=== PATIENT | female | born 1935 | race Caucasian/White ===

== ENCOUNTER 2023-10-03 22:23 | Inpatient (IN) | payer OTHER, SELFPAY ==
[2023-10-03 15:57] VITALS: BP 203/91
[2023-10-03 16:27] LABS: % Basophils 0.5 % (0-2); % Eosinophils 1.4 % (0-6); % Immature Granulocytes 0.3 % (0-0.5); % Lymphocytes 16.3 % (20.5-51.1); % Monocytes 11.8 % (1.7-9.3); % Neutrophils 69.7 % (42.2-75.2); Absolute Eosinophils 0.1 10^3/uL (0-0.7); Absolute Lymphocytes 1.3 10^3/uL (1.2-3.4); Absolute Monocytes 0.9 10^3/uL (0.1-0.6); Absolute Neutrophils 5.5 10^3/uL (1.4-6.5); Hematocrit 36.1 % (37.0-47.0); Mean Corpuscular Hgb 30.2 pg (27.0-31.0); Mean Platelet Volume 10.2 fL (7.4-10.4); Nucleated Red Blood Cells % 0 %; Platelet Count 227 10^3/uL (130-400); Red Cell Dist. Width 12.5 % (11.5-14.5); White Blood Cell Count 7.8 10^3/uL (4.8-10.8)
[2023-10-03 16:41] LABS: INR 1.86; PT 21.3 Sec (11.4-14.6)
[2023-10-03 16:42] LABS: ALT (SGPT) 17 U/L (0-35); APTT 32.8 Sec (23.4-35.0); AST (SGOT) 30 U/L (14-36); Albumin 4.1 g/dl (3.5-5.0); Alkaline Phosphatase 68 U/L (38-126); Blood Urea Nitrogen 9 mg/dl (7-17); Calcium 9.1 mg/dl (8.4-10.2); Carbon Dioxide 23 mmol/L (22-30); Chloride 91 mmol/L (98-107); Glucose 99 mg/dl (70-99); Potassium 3.7 mmol/L (3.5-5.1); Sodium 123 mmol/L (135-145); Total Bilirubin 0.5 mg/dl (0.2-1.3); Total Protein 6.6 g/dl (6.3-8.2); eGFR > 60.00
[2023-10-03 16:51] LABS: Troponin I < 0.012 ng/ml
[2023-10-03 18:27] LABS: Osmolality Serum 255 mOsm/kg (275-300)
[2023-10-03 18:48] LABS: TSH 3.18 uIU/ml (0.47-4.68)
--- NOTE | 2023-10-03 19:50 | ED.GENMED ---
History of Present Illness
General
Chief Complaint: Blood Pressure Problem
Source: patient
Exam Limitations: none
Time Seen by Provider: 10/03/23 17:50
Nursing documentation reviewed up to this point in time: agreed with
History of Present Illness
History of Present Illness:
87-year-old female history of hypertension A-fib on warfarin followed at [facility] [address], stay with her family locally for the past 2 weeks that she has been feeling well blood pressure has been elevated looks like her hydralazine has been
increased beta-jodie was stopped, also started on an SSRI few weeks ago she has had progressive weakness dizziness aches fatigue and blood pressure is still elevated no chest pain no slurred speech no arm or leg weakness nondrinker non-smoker
typically lives alone she is retired although she has been staying with family
Past History
Past History
ED Past Medical History: Arrthythmia, HTN and Psychiatric
Social History
Tobacco: Non-smoker
Alcohol: None
Drug: None
Personal:
Living: alone
Employment: Retired
Review of Systems
Review of Systems
All Other Systems: Not applicable
Constitutional: Reports fatigue; Denies fever
Respiratory: Reports no symptoms
Cardiac: Reports no symptoms
ABD/GI: Reports no symptoms
: Reports frequency; Denies dysuria, incontinence or difficulty voiding
Musculoskeletal: Reports no symptoms
Skin: Reports no symptoms
Neurological: Reports dizzy
Endocrine: Reports no symptoms
Hematologic/Lymphatic: Reports no symptoms
Psychiatric: Reports no symptoms
Phy Exam
Physical Exam
Physical Exam:
Physical Exam
General: no apparent distress, not acutely ill
Neck: No jaundice no tongue bite
Heart: s1/s2 regular rate and rhythm, no murmur. equal radial pulses.
Lungs: no acute respiratory distress. clear bilaterally
Abdomen: Nontender
Neuro: alert and oriented. no focal neurological deficits
Skin: no rash
Psychiatric: well kept. interactive and cooperative
Extremities: no edema. No calf pain
Course
Orders/Labs/Results
Orders:
Orders
10/03/23 Breakfast
Regular
At Your Request: Limited Participation
Does patient need a safe tray?: No
Fluid Restriction: 1200 mL/day (40 oz)
10/03/23 16:02
Electrocardiogram (*1) Urgent
Reason for Study: Chest Pain
EKG- Treatment ONCE
10/03/23 16:16
Complete Blood Count/With Diff Urgent
Comprehensive Metabolic Panel Urgent
Cortisol, Random Urgent
Comment: ADD ON
PTT Urgent
Prothrombin Time Urgent
Serum Osmolality Urgent
Comment: ADD ON
TSH Urgent
Comment: ADD ON
Troponin I Urgent
10/03/23 17:51
Add On- LAB Urgent
Tests Added?: TSH, random cortisol, serum osmolality,
CR Chest - 2 Views Urgent
Comment:
Reason For Exam: Low-sodium
10/03/23 19:41
0.9% Sodium Chloride 250 ml [Nss] 250 ml IV BOLUS
HydrALAZINE [Apresoline] 10 mg IV NOW STA
10/03/23 22:02
Osmolality, Random Urine Urgent
Date Specimen was Collected: 10/03/23
Time Specimen was Collected: 21:24
Urinalysis Reflex To Culture Urgent
Date Specimen was Collected: 10/03/23
Time Specimen was Collected: 21:24
Urine Microscopic Reflex Cult Urgent
Urine Sodium Urgent
Date Specimen was Collected: 10/03/23
Time Specimen was Collected: 21:24
10/03/23 22:07
Admit/Transfer Patient As Directed
Co-Sign Provider:
Level of Care: Inpatient admission
Assign to:: Telemetry
Physician / Group: Kee
Diagnosis: Hyponatremia, Hypertension
Reason for Telemetry: Arrhythmia
Date to Stop Telemetry: 10/06/23
Time to Stop Telemetry: 11:00
Reason for Hospitalization: Hyponatremia, Hypertension
Expected length of stay greater than two midnights?: Yes
ELOS- Estimated Length of Stay in days: 3
I certify the patient meets the requirements for IP care: Yes
Code Status As Directed
Resuscitation Status: Full Code
10/03/23 22:59
Acetaminophen [Tylenol] 650 mg PO Q4HPRN PRN
HydrALAZINE [Apresoline] 10 mg IV Q6HPRN PRN
10/03/23 22:59
Activity As Directed
Activity Level: Ambulate
With Assistance
EKG with chest pain [ECG as needed] As Directed
ECG as needed for:: Chest Pain
I/O [Intake/ Output] As Directed
Frequency: Per unit guidelines
Neurological Checks As Directed
Frequency: q4h
Orthostatic Vital Signs As Directed
Orthostatic VS Frequency: BID
Pneumatic Compression Sleeves As Directed
Type: Knee high
Vital Signs As Directed
Frequency: Per unit guidelines
Weight As Directed
Frequency: Daily
Oxygen Therapy [O2 Therapy] [RESP] Routine
Titrate/Wean O2 to maintain O2 sat greater than (%): 94
Ot Eval And Treat Routine
PT Consult [Pt Eval And Treat] Routine
Activity Level: Ambulate
With Assistance
DX Deep Vein Thrombosis Video Routine
10/03/23 23:29
TSH Reflex To Free T4 Routine
Troponin I Q6H
10/04/23 06:00
EKG [Electrocardiogram (*1)] IN AM
Reason for Study: Chest Pain
10/04/23 06:44
Basic Metabolic Panel IN AM
Complete Blood Count/No Diff IN AM
INR [Prothrombin Time] IN AM
Troponin I Q6H
10/04/23 08:00
Aspirin Chewable [Low Strength Aspirin] 81 mg PO DAILY
Atorvastatin [Lipitor] 10 mg PO DAILY
Furosemide [Lasix] 40 mg IV DAILY
Loratadine [Claritin] 10 mg PO DAILY
Sotalol [Betapace] 80 mg PO BID
10/04/23 18:00
Latanoprost [Xalatan Ophthalmic Solution] 1 drop BOTH EYES QPM
Warfarin [Coumadin] 2.5 mg PO QPM
10/05/23 05:45
INR [Prothrombin Time] IN AM
10/06/23 04:53
INR [Prothrombin Time] IN AM
10/06/23 11:00
DC Protocol for Telemetry ONCE
10/07/23 04:42
INR [Prothrombin Time] IN AM
Abnormal Lab Results
10/03/23 10/03/23
16:16 22:02
Hct 36.1 L %
(37.0-47.0)
Absolute Monos (auto) 0.9 H 10^3/uL
(0.1-0.6)
Lymphocytes % 16.3 L %
(20.5-51.1)
Monocytes % 11.8 H %
(1.7-9.3)
PT 21.3 H Sec
(11.4-14.6)
Sodium 123 L mmol/L
(135-145)
Chloride 91 L mmol/L
(98-107)
Serum Osmolality 255 L mOsm/kg
(275-300)
Urine Ketones 1+ A
(Negative)
Ur Occult Blood Reflex Trace A
(Negative)
Leukocyte Esterase Rfl Trace A
(Negative)
Urine Osmolality 110 L mOsm/kg
(300-900)
Urine Sodium 29 L mmol/L
(30-90)
10/03/23 16:16
10/03/23 16:16
Vital Signs
Initial and Last Documented VS:
Initial Vital Signs
Temp Pulse Resp BP Pulse Ox
98.6 F 61 18 203/91 95
10/03/23 15:57 10/03/23 15:57 10/03/23 15:57 10/03/23 15:57 10/03/23 15:57
Last Documented Vital Signs
Temp Pulse Resp BP Pulse Ox
97.6 F 74 18 153/74 97
10/07/23 07:20 10/07/23 07:20 10/07/23 07:20 10/07/23 07:20 10/07/23 07:20
MDM/Problems Addressed
Differential Diagnosis Includes:
Hyponatremia hypertensive urgency electrolyte abnormality doubt CVA
MDM/Problems Addressed:
Weakness high blood
Chronic conditions affecting care: HTN, Cardiomyopathy, Arrhythmia and Psychiatric illness
Acute Exacerbation and/or Progression of Chronic Illness: HTN, Cardiomyopathy, Arrhythmia and Psychiatric illness
*Radiology
Radiology exam reviewed: preliminary read by ED provider
*Pulse Oximetry
Patient hypoxic: no
*Critical Care Note
Total Time (30-74mins, 75-104mins- exclusive of procedures): Not Applicable
ED Attending Note
-
Portions of this chart may have been created with voice recognition software.� Occasional wrong word or��sound alike� substitutions may have occurred due to the inherent limitations of voice recognition software.
Discharge Plan
Departure
Patient Disposition: Admit
Date of Disposition: 10/03/23
Time of Disposition: 20:17
Admit to: Telemetry
Presentation/result/management discussed w/ accepting MD/DO: Hospitalist
Patient with high blood pressure during this ER visit?: Yes
Condition: Good
Discharge Problem:
Acute hyponatremia
Interventions
Interventions:
*Risk Screen - Suicide Last Done: 10/03/23 20:25
*General Assessment Last Done: 10/03/23 16:01
*Neglect/Abuse Screening Last Done: 10/03/23 20:25
ED- Fall Risk Assessment Last Done: 10/03/23 20:25
*ED COVID-19 Vaccine History Last Done: 10/03/23 22:59
*Nursing Disposition Last Done: 10/03/23 22:59
ED- Cardiac Assessment Last Done: 10/03/23 20:25
ED- Neurological Assessment Last Done: 10/03/23 20:25
ED- Pulmonary Assessment Last Done: 10/03/23 20:25
Discharge Date and Time
Discharge Date/Time: 10/03/23 22:59
[2023-10-03 20:17] VITALS: BMI 23.9
[2023-10-03] MEDS: APRESOLINE 10 MG IV (20:21)
[2023-10-03] MEDS: NSS 250 IV (20:22)
--- NOTE | 2023-10-03 20:26 | EDRN ---
Assumed care of patient at this time, went in and introduced myself to patient, hooked up to monitor and medicated patient, informed them it appears she will be admitted to the hospital.
--- NOTE | 2023-10-03 20:45 | EDRN ---
Purwick placed, patient resting comfortably
[2023-10-03 21:22] VITALS: BP 169/83
--- NOTE | 2023-10-03 21:23 | EDRN ---
Dr. Sweet in at room working on admission.
[2023-10-03 22:12] LABS: Osmolality Urine 110 mOsm/kg (300-900)
[2023-10-03 22:14] LABS: Urine Albumin Negative (Neg - Trace); Urine Bilirubin Negative (Negative); Urine Character Clear (Clear); Urine Color Straw; Urine Glucose Negative (Negative); Urine Ketone 1+ (Negative); Urine Leukocyte Trace (Negative); Urine Nitrite Negative (Negative); Urine Occult Blood Trace (Negative); Urine Specific Gravity 1.005 (<1.030); Urine Urobilinogen Negative (Neg - 1+)
--- NOTE | 2023-10-03 22:17 | HPS.HSE ---
Family Physician
-
Family Physician: INTERVIEWE UNKNOWN - PT NOT
Chief Complaint
-
High blood pressure, chest discomfort
History of Present Illness
Patient is an 87y F with PMH significant for hypertension and PA-Fib who presents to ED complaining of burning chest discomfort and elevated blood pressure. Patient states that she has been having burning discomfort in a band-like fashion around
the lower chest / upper abdomen. This has been off-and-on for about one month. No associated palpitations, dyspnea, nausea, etc. Patient has been monitoring her BP and notes that it has been increasingly elevated at home - at times as high as 250
systolic. She has had several recent medication changes including: switch from metoprolol to carvedilol and increase in hydralazine from 25mg to 50mg TID.
Today, she had worsening burning sensation around her middle and her BP was markedly elevated at home - prompting her to present to the ED for further evaluation.
Medical History
Past Medical History
Past Medical History: Reports Other
Additional Past Medical History:
Hypertension
Paroxysmal A-Fib
Anxiety / Depression
Macular Degeneration
Past Surgical History: Reports Other
Additional Past Surgical History:
Right ARELY
Cataracts
Social History
Tobacco: Non-smoker
Alcohol: Occasional
Drug: None
Family History
Family History: Not pertinent
Allergies / Home Medications
Allergies reflects when Allergies were last updated in [facility].
Home Medications with original date entered in [facility]
Allergy/Medication List:
Allergies
Allergy/AdvReac Type Severity Reaction Status Date / Time
No Known Allergies Allergy Unverified 10/03/23 15:59
Home Medications
acetaminophen 325 mg tablet 650 mg PO Q6H PRN pain 10/03/23
carvedilol 6.25 mg tablet 6.25 mg PO BID 10/03/23
enalapril maleate 20 mg tablet 20 mg PO BID 10/03/23
escitalopram oxalate 10 mg tablet (Lexapro) 10 mg PO DAILY 10/03/23
hydralazine 50 mg tablet 50 mg PO TID 10/03/23
latanoprost 0.005 % eye drops 1 drp ophthalmic (eye) QPM 10/03/23
loratadine 10 mg tablet 10 mg PO DAILY 10/03/23
meclizine 25 mg tablet 25 mg PO TID 10/03/23
multivitamin 1 tab PO DAILY 10/03/23
simvastatin 20 mg tablet 20 mg PO DAILY 10/03/23
sotalol 80 mg tablet 80 mg PO BID 10/03/23
warfarin 2.5 mg tablet 2.5 mg PO DAILY 10/03/23
Review of Systems
-
History Source: Patient
A 12 point ROS was completed and negative except as noted: Yes
Constitutional: Reports Fatigue; Denies Fever or Chills
Respiratory: Denies Cough or Trouble Breathing
Cardiac: Reports Chest Pain; Denies Diaphoresis, Palpitations or Syncope
Abdomen/GI: Denies Abdominal Pain, Nausea, Vomiting or Diarrhea
: Denies Dysuria, Frequency or Flank Pain
Neurological: Denies Dizzy or Headache
Psych: Denies Depression or Anxiety
Physical Exam
Vital Signs
Vital Signs
Temp Pulse Resp BP Pulse Ox
98.6 F 83 17 169/83 96
10/03/23 15:57 10/03/23 21:22 10/03/23 21:22 10/03/23 21:22 10/03/23 21:22
Physical Exam
General: Other (87y F in no acute distress.)
HEENT: Moist mucous membranes, PERRLA and Other (Mild JVD)
Respiratory: Other (Bibasilar rales about 1/4 up.)
Cardiac: S1/S2, Regular Rhythm and Murmur (II/ JORGE)
GI: Soft, Non Tender, Non Distended and Normal Bowel Sounds
Musculoskeletal: No Clubbing, No Cyanosis and Other (Trace ankle edema bilaterally.)
Neuro: AO x 3 and Nonfocal/grossly intact
Laboratory Results
-
10/03/23 16:16
10/03/23 16:16
Laboratory Results
PT 21.3 Sec (11.4-14.6) H 10/03/23 16:16
INR 1.86 10/03/23 16:16
APTT 32.8 Sec (23.4-35.0) 10/03/23 16:16
Total Bilirubin 0.5 mg/dl (0.2-1.3) 10/03/23 16:16
AST 30 U/L (14-36) 10/03/23 16:16
ALT 17 U/L (0-35) 10/03/23 16:16
Alkaline Phosphatase 68 U/L (38-126) 10/03/23 16:16
Troponin I < 0.012 ng/ml 10/03/23 16:16
Impression/Plan
-
A/P: Patient is an 87y F with PMH significant for hypertension and PA-Fib who presents to ED complaining of chest discomfort and elevated BP.
Hyponatremia
- Admit for further evaluation and treatment.
- Impossible to say whether this is acute or symptomatic - with no prior labs for comparison.
- ? hypervolemic hyponatremia with rales on exam and elevated BP.
- Trial of low dose Lasix for now and follow for changes.
- Check urine studies.
- Follow for improvement in Na levels.
- Consider Nephrology evaluation if levels do not improve.
- Check Echo to evaluate for cardiomyopathy, etc
- Check TFTs, AM cortisol, etc - (done in ED and normal).
Uncontrolled Hypertension
Chest Discomfort
- Normal EKG / troponin despite report of 'burning' chest discomfort.
- Continue to follow troponin x 3 sets.
- Add ASA daily for now.
- Adjust BP med regimen for improved control.
- IV Lasix trial as noted above.
Paroxysmal Atrial Fibrillation
- Currently in NSR.
- Patient reports single episode of A-Fib in the remote past and none since that she is aware of.
- Continue sotalol and Coumadin for now.
- Follow INR daily.
- Monitor on telemetry.
Anxiety / Depression
- Hold Lexapro acutely given hyponatremia.
DVT Prophylaxis: On Coumadin
Code Status: Full
[2023-10-03 22:24] LABS: Urine Sodium 29 mmol/L (30-90)
[2023-10-03 22:28] LABS: Urine Mucus Moderate
[2023-10-03 22:29] LABS: Urine Red Blood Cell 0-2 /HPF (0-2)
--- NOTE | 2023-10-03 22:36 | EDRN ---
No delay sent to the floor, patient resting comfortably with family at bedside
[2023-10-03 23:00] VITALS: BP 189/89
[2023-10-03 23:12] VITALS: BMI 23.6
[2023-10-03 23:51] VITALS: BMI 23.6
[2023-10-03] MEDS: BETAPACE 80 MG PO (23:54)
[2023-10-03] MEDS: COUMADIN 2.5 MG PO (23:54)
[2023-10-04] VITALS (9 sets, daily range): BP systolic 83–189; BP diastolic 49–89; PULSE 57–98; O2SAT 96
[2023-10-04 00:08] LABS: Troponin I < 0.012 ng/ml
[2023-10-04 00:41] LABS: TSH Reflex To Free T4 3.44 uIU/ml (0.47-4.68)
[2023-10-04 08:32] LABS: Hematocrit 37.6 % (37.0-47.0); Hemoglobin 13.2 g/dL (12.0-16.0); Mean Corp Hgb Conc. 35.1 g/dL (33.0-37.0); Mean Corpuscular Hgb 30.1 pg (27.0-31.0); Mean Corpuscular Volume 85.6 fL (81.0-99.0); Mean Platelet Volume 10.7 fL (7.4-10.4); Platelet Count 209 10^3/uL (130-400); Red Blood Cell Count 4.39 10^6/uL (4.20-5.40); Red Cell Dist. Width 12.8 % (11.5-14.5); White Blood Cell Count 7.9 10^3/uL (4.8-10.8)
[2023-10-04 08:40] LABS: INR 1.78; PT 20.6 Sec (11.4-14.6)
[2023-10-04 08:56] LABS: Troponin I < 0.012 ng/ml
[2023-10-04 09:07] LABS: Blood Urea Nitrogen 8 mg/dl (7-17); Calcium 8.9 mg/dl (8.4-10.2); Carbon Dioxide 26 mmol/L (22-30); Chloride 96 mmol/L (98-107); Estimated Creatinine Clearance 44 ml/min; Glucose 83 mg/dl (70-99); Potassium 3.6 mmol/L (3.5-5.1); Sodium 131 mmol/L (135-145); eGFR > 60.00
[2023-10-04] MEDS: BETAPACE 80 MG PO (09:14)
[2023-10-04] MEDS: LIPITOR 10 MG PO (09:15)
[2023-10-04] MEDS: CLARITIN 10 MG PO (09:15)
[2023-10-04] MEDS: LASIX 40 MG IV (09:21)
--- NOTE | 2023-10-04 11:08 | W.PN.HOSP.TC ---
Today's Communication/Plan
-
see A/P
Assessment / Plan
Assessment / Plan
HPI: 87 yo F with PMH significant for hypertension, PA-Fib who presented to ED complaining of burning chest discomfort and elevated blood pressure. Patient states that she has been having burning discomfort in a band-like fashion around the
lower chest / upper abdomen. This has been off-and-on for about one month. No associated palpitations, dyspnea, nausea, etc. Patient has been monitoring her BP and notes that it has been increasingly elevated at home - at times as high as 250
systolic. She has had several recent medication changes including: switch from metoprolol to carvedilol and increase in hydralazine from 25mg to 50mg TID.
On DOA, she had worsening burning sensation around her middle and her BP was markedly elevated at home - prompting her to present to the ED for further evaluation.
A/P:
# Hyponatremia,impossible to determine if acute or symptomatic (no prior labs for comparison), ?hypervolemic hyponatremia with rales on exam and elevated BP.
Urine studies reviewed.
sodium level improved from 123 on admission to 131 today following trial of low dose Lasix.
Hold further lasix
Follow for improvement in Na levels.
TSH 3.44
random cortisol at 13.0, will check am cortisol for comparison
# Uncontrolled Hypertension
# Chest Discomfort, report of 'burning' chest discomfort in a band like manner below breasts
Normal EKG / troponin neg x3
Pt declined ASA at this time given she's on Coumadin, OK to hold further ASA with unrevealing cardiac work up
Cont MORNING [employer]OW [employer] Coreg, lisinopril and hydralazine with holding parameter
Check Echo to evaluate for cardiomyopathy, etc
# Acute on Chronic BL arm 'burning sensation' predominately extensor surface
Check B12 level
Neuro CS
?Consider MR cervical spine/MR brachial plexus
# Paroxysmal Atrial Fibrillation
Currently in NSR.
Patient reports single episode of A-Fib in the remote past and none since that she is aware of.
Continue sotalol and Coumadin for now.
Follow INR daily.
Monitor on telemetry.
# Anxiety / Depression
Hold Lexapro acutely given hyponatremia.
DVT Prophylaxis: On Coumadin
Code Status: Full
Dispo: PT OT eval
DW son at bedside
total time spent 51 min
Anticipated Discharge: > 48 hours
Subjective/Interval History
-
Date of Service: October 04, 2023
Objective Data
-
Labs:
Laboratory Results
10/04/23
06:44
WBC 7.9
Hgb 13.2
Hct 37.6
Plt Count 209
PT 20.6 H
INR 1.78
Sodium 131 L D
Potassium 3.6
Chloride 96 L
Carbon Dioxide 26
BUN 8
Creatinine 0.8
Glucose 83
Calcium 8.9
Vital Signs:
Vital Signs
Temp Pulse Resp BP Pulse Ox
37.0 C 74 18 166/77 97
10/04/23 06:54 10/04/23 09:14 10/04/23 06:54 10/04/23 09:14 10/04/23 06:54
I&O
10/03/23 10/04/23 10/05/23
06:59 06:59 06:59
Intake Total 240 / 240
Output Total 500 / 500
Balance -260 / -260
Review of Systems
-
Abdomen/GI: Reports Other (burning sensation in a band manner across her thorax just below breasts )
Neuro: Reports Other (burning sensation of BL arms )
Physical Exam
-
General: Well Developed, Well Nourished, No Apparent Distress, Comfortable and Conversant; Negative Respiratory Distress
HEENT: Normocephalic, Atraumatic, Nose Appears Normal and Ears Appear Normal; Negative Oxygen
Respiratory: Clear to Auscultation and Non Labored Respirations; Negative Accessory Resp Muscle Use
Cardiac: Regular Rhythm and S1/S2
GI: Soft, Nontender, Nondistended and Normal Bowel Sounds
Skin: Warm and Dry
Neuro: Awake, Alert, Oriented and AO x 3
Psych: Calm and Intact Judgement/Insight
Data Reviewed
-
Labs: Labs Reviewed by me
[2023-10-04] MEDS: VASOTEC PO ×2 (12:00→22:37)
[2023-10-04] MEDS: PROTONIX IV 40 MG IV (12:09)
[2023-10-04] MEDS: NSS (PRESERVATIVE FREE) 10 ML IV (12:09)
[2023-10-04] MEDS: LIDOCAINE 4% PATCH 1 PATCH TOPICAL (13:44)
[2023-10-04 15:54] LABS: Vitamin B12 271 pg/ml (239-931)
[2023-10-04] MEDS: APRESOLINE 50 MG PO (17:00)
[2023-10-04] MEDS: COUMADIN 2.5 MG PO (17:35)
[2023-10-04] MEDS: XALATAN OPHTHALMIC SOLUTION 1 DROP BOTH EYES (17:39)
--- NOTE | 2023-10-04 18:28 | PTCARENOTE ---
Received patient this am AAOx3. Pt refused Asa [address] Hughes made aware. Orthostatic VS positive tilt. Dr. Hughes made aware. Pt OOB to chair and tolerated well. Ambulated to Bathroom with assistance x1 an single point cane. Tolerated
diet well. Made patient comfortable. Cont to assess patient status.
[2023-10-04] MEDS: BETAPACE PO (22:37)
[2023-10-04] MEDS: APRESOLINE PO (22:37)
[2023-10-04] MEDS: COREG PO (22:37)
[2023-10-05] VITALS (7 sets, daily range): BP systolic 79–175; BP diastolic 51–89; PULSE 78–114
[2023-10-05 08:11] LABS: PT 22.5 Sec (11.4-14.6)
[2023-10-05 08:18] LABS: Blood Urea Nitrogen 13 mg/dl (7-17); Calcium 9.1 mg/dl (8.4-10.2); Carbon Dioxide 26 mmol/L (22-30); Chloride 92 mmol/L (98-107); Estimated Creatinine Clearance 44 ml/min; Glucose 78 mg/dl (70-99); Magnesium 1.9 mg/dl (1.6-2.3); Sodium 130 mmol/L (135-145); eGFR > 60.00
[2023-10-05 08:47] LABS: Cortisol, Random 18.5 ug/dl
[2023-10-05] MEDS: LIDOCAINE 4% PATCH 1 PATCH TOPICAL (08:49)
[2023-10-05] MEDS: PROTONIX IV 40 MG IV (08:49)
[2023-10-05] MEDS: NSS (PRESERVATIVE FREE) 10 ML IV (08:49)
[2023-10-05] MEDS: LIPITOR 10 MG PO (08:50)
[2023-10-05] MEDS: BETAPACE 80 MG PO ×2 (08:50→22:37)
[2023-10-05] MEDS: VASOTEC 20 MG PO (08:50)
[2023-10-05] MEDS: APRESOLINE 50 MG PO ×2 (08:50→17:11)
[2023-10-05] MEDS: CLARITIN 10 MG PO (08:50)
[2023-10-05] MEDS: COREG 6.25 MG PO ×2 (08:50→09:50)
--- NOTE | 2023-10-05 09:40 | W.PN.HOSP.TC ---
Today's Communication/Plan
-
see A/P
Assessment / Plan
Assessment / Plan
HPI: 87 yo F with PMH significant for hypertension, PA-Fib who presented to ED complaining of burning chest discomfort and elevated blood pressure. Patient states that she has been having burning discomfort in a band-like fashion around the
lower chest / upper abdomen. This has been off-and-on for about one month. No associated palpitations, dyspnea, nausea, etc. Patient has been monitoring her BP and notes that it has been increasingly elevated at home - at times as high as 250
systolic. She has had several recent medication changes including: switch from metoprolol to carvedilol and increase in hydralazine from 25mg to 50mg TID.
On DOA, she had worsening burning sensation around her middle and her BP was markedly elevated at home - prompting her to present to the ED for further evaluation.
A/P:
# Hyponatremia, impossible to determine if acute or symptomatic (no prior labs for comparison), ?hypervolemic hyponatremia with rales on exam and elevated BP.
Urine studies reviewed.
sodium level improved from 123 on admission to 130 today
Hold further Lasix
Follow for improvement in Na levels.
TSH 3.44, am cortisol acceptable at 18.5
# Uncontrolled Hypertension
Cont RN RADIATION lisinopril, hydralazine with holding parameter
Cont RN RADIATION Coreg, increased from 6.25 to 12.5 BID
Check Echo to evaluate for cardiomyopathy, etc
# 'burning' chest discomfort in a band like manner below breasts
Normal EKG / troponin neg x3
Pt declined ASA at this time given she's on Coumadin, OK to hold further ASA with unrevealing cardiac work up
Neuro consulted
# Acute on Chronic BL arm 'burning sensation' predominately on extensor surface
B12 level low at 271, start supplement
Check MR cervical spine
Neuro consulted
# Paroxysmal Atrial Fibrillation
Currently in NSR.
Patient reports single episode of A-Fib in the remote past and none since that she is aware of.
Continue sotalol and Coumadin for now.
Follow INR daily.
Monitor on telemetry.
# Anxiety / Depression
Hold Lexapro acutely given hyponatremia.
# Hypokalemia
replete K
DVT Prophylaxis: On Coumadin
Code Status: Full
Dispo: PT OT eval
total time spent 51 min
Anticipated Discharge: 24 - 48 hours
Subjective/Interval History
-
Date of Service: October 05, 2023
Objective Data
-
Labs:
Laboratory Results
10/05/23
05:45
PT 22.5 H
INR 2.00
Sodium 130 L
Potassium 3.0 L
Chloride 92 L
Carbon Dioxide 26
BUN 13
Creatinine 0.8
Glucose 78
Calcium 9.1
Vital Signs:
Vital Signs
Temp Pulse Resp BP Pulse Ox
36.8 C 78 18 175/88 96
10/05/23 07:15 10/05/23 08:50 10/05/23 07:15 10/05/23 08:50 10/05/23 07:15
I&O
10/04/23 10/05/23 10/06/23
06:59 06:59 06:59
Intake Total 240 / 240 720 / 720
Output Total 500 / 500 200 / 200
Balance -260 / -260 520 / 520
Review of Systems
-
Abdomen/GI: Reports Other (burning sensation in a band-like manner across her chest wall just below breasts )
Neuro: Reports Other (burning sensation of BL arms extensor surface )
Physical Exam
-
General: Well Developed, Well Nourished, No Apparent Distress, Comfortable and Conversant; Negative Respiratory Distress
HEENT: Normocephalic, Atraumatic, Nose Appears Normal and Ears Appear Normal; Negative Oxygen
Respiratory: Clear to Auscultation and Non Labored Respirations; Negative Accessory Resp Muscle Use
Cardiac: Regular Rhythm and S1/S2
GI: Soft, Nontender, Nondistended and Normal Bowel Sounds
Skin: Warm and Dry
Neuro: Awake, Alert, Oriented and AO x 3
Psych: Calm and Intact Judgement/Insight
Data Reviewed
-
Labs: Labs Reviewed by me
[2023-10-05] MEDS: KCL 40 MEQ PO (09:44)
[2023-10-05] MEDS: VITAMIN B-12 1000 MCG PO (09:50)
[2023-10-05] MEDS: KCL 20 MEQ PO (13:29)
--- NOTE | 2023-10-05 16:03 | CM ---
CM met with pt, son/Don and ASHELY/curtis bedside
[place]
Currently residing with dtr/Cindy at [address] [place]
Dtr's home is a [address] with 2SYE
Pt has 1st floor setup with 1/2 bath and 15 steps to full bath
Pt typically is independent wth ambulation and drives+
Has a SPC, WW and WC from prior injuries for use if needed
PCP- Dr Liang Funez
rx- [facility]
PT/OT Vn vs SNF recommendations
Pt and family requesting SNF be arranged
[facility] is [facility]st choice
[facility] and referrals faxed via [facility]
Pt will require [place] auth
Discharge Disposition- SNF pending auth
[2023-10-05] MEDS: COUMADIN 2.5 MG PO (17:11)
[2023-10-05] MEDS: XALATAN OPHTHALMIC SOLUTION 1 DROP BOTH EYES (17:11)
--- NOTE | 2023-10-05 18:34 | CON.NEURO4 ---
Consultation - Neurology 4
-
CONSULTING PHYSICIAN: Ramone Snowden MD(Neurology)
REFERRING PHYSICIAN: Hospitalist
DICTATED BY: Ramone Snowden MD
DATE/TIME OF REQUEST: 10/04/2023
DATE/TIME OF CONSULTATION: 10/04/2023 1400
Reason for Consultation: shooting pain across her chest and arms
History of Present Illness:
This is a 87 year old right handed female who has presented to the hospital with burning and shooting pain across her ribs and her arms. Patient's has a h/o scoliosis hypertension and Atrial Fibrillation who was admitted presents to complaining
of burning chest discomfort and elevated blood pressure. Patient states that she has been having burning discomfort in a band-like fashion around the lower chest / upper abdomen. This has been off-and-on for about one month. No associated
palpitations, dyspnea, nausea, etc. Patient has been monitoring her BP and notes that it has been increasingly elevated at home - at times as high as 250 systolic. She has had several recent medication changes including: switch from metoprolol to
carvedilol and increase in hydralazine from 25mg to 50mg TID.
Today, she had worsening burning sensation around her middle and her BP was markedly elevated at home - prompting her to present to the ED for further evaluation.
Minor neck pain and pain extending from her neck into her forearms along the outer aspects
Past Medical History: HTN, scoliosis
Surgical History: None
Family History: NC
Social History: Lives at home
Allergies: None
Home Medications: Addendum
Review of Symptoms:
Patient denies any fever, headache, chest pain, shortness of breath, GI or symptoms.
�Per the HPI.�All systems are reviewed negative except above.
Vital Signs:
The patient has a
Temp Pulse Resp BP Pulse Ox
37.0 C 74 18 166/77 97
Physical Exam:
The patient is afebrile, heart sounds S1 and S2 are (regular / irregular), and chest is clear to auscultation bilaterally.
-
Neurologic Examination:
The patient is awake, alert and oriented x 3. (He/She) is able to follow commands and answer questions appropriately. There is no aphasia or dysarthria. On cranial nerve assessment, pupils are 3 mm bilateral, round and reactive to light and
accommodation. Visual salinas are full. Extraocular movements are intact. Facial sensations are intact and bilaterally symmetrical, there is no facial asymmetry. Hearing is intact bilaterally to normal conversation volume. Tongue palate and uvula
are midline. Sternocleidomastoid strengths are full bilaterally.
Motor strengths are 5/5 bilateral upper and lower extremities on medical research [place] scale. There is no drift or involuntary movement noted.
Deep tendon reflexes are + bilateral upper and lower extremities and Babinski is absent bilaterally.
Sensations of pain, touch, temperature and vibration are intact and bilaterally symmetrical.
. Coordination is intact by finger to nose bilaterally. Rombergs unsteady. GAit assisted
Lab Results: Addendum
Neuro Imaging:
Impression:
Mrs.JANET YAN is a 87 year old F who has presented to the hospital with chief complaint of intercostal neuralgia.
Recommendations:
1. Lidocaine patch
2. B12/MVI
3. MRI Cervical Spine
4. Gabapentin 100mg qhs
Discussed patient care with: Hospitalist
Vital Signs and Labs
-
Vital Signs and Labs:
Vital Signs
Temp Pulse Resp BP Pulse Ox
36.9 C 69 18 149/65 95
10/05/23 15:08 10/05/23 17:11 10/05/23 15:08 10/05/23 17:11 10/05/23 15:08
Lab Results
10/04/23 06:44
10/05/23 05:45
PT 22.5 Sec (11.4-14.6) H 10/05/23 05:45
INR 2.00 10/05/23 05:45
APTT 32.8 Sec (23.4-35.0) 10/03/23 16:16
Sodium 130 mmol/L (135-145) L 10/05/23 05:45
Potassium 3.0 mmol/L (3.5-5.1) L 10/05/23 05:45
BUN 13 mg/dl (7-17) 10/05/23 05:45
Glucose 78 mg/dl (70-99) 10/05/23 05:45
Calcium 9.1 mg/dl (8.4-10.2) 10/05/23 05:45
Vitamin B12 271 pg/ml (239-931) 10/04/23 06:44
Medications
-
Active Medications
Generic Name Dose Route Start Last Admin
Trade Name Freq PRN Reason Stop Dose Admin
Acetaminophen 650 mg 10/03/23 22:59
Acetaminophen 325 Mg Tablet PO 10/31/23 22:58
Q4HPRN PRN
Mild Pain / Temp > 101
Atorvastatin Calcium 10 mg 10/04/23 08:00 10/05/23 08:50
Atorvastatin (Lipitor) 10 Mg Tablet PO 11/01/23 07:59 10 mg
DAILY HESHAM Administration
Carvedilol 12.5 mg 10/05/23 20:00
Carvedilol 12.5 Mg Tablet PO 11/02/23 19:59
BID HESHAM
Cyanocobalamin 1,000 mcg 10/05/23 10:00 10/05/23 09:50
Cyanocobalamin 1,000 Mcg Tablet PO 11/02/23 09:59 1,000 mcg
DAILY HESHAM Administration
Enalapril Maleate 20 mg 10/04/23 11:30 10/05/23 08:50
Enalapril 10 Mg Tablet PO 11/01/23 11:29 20 mg
BID HESHAM Administration
Hydralazine HCl 10 mg 10/03/23 22:59
Hydralazine 20 Mg/Ml Vial IV 10/31/23 22:58
Q6HPRN PRN
SBP > 180
Hydralazine HCl 50 mg 10/04/23 16:00 10/05/23 17:11
Hydralazine 50 Mg Tablet PO 11/01/23 15:59 50 mg
TID HESHAM Administration
Latanoprost 1 drop 10/04/23 18:00 10/05/23 17:11
Latanoprost 0.005% (Ophthalmic Solution) 2.5 Ml Bottle BOTH EYES 11/01/23 17:59 1 drop
QPM HESHAM Administration
Lidocaine 1 patch 10/04/23 13:15 10/05/23 08:49
Lidocaine 4% Topical Patch TOPICAL 11/01/23 13:14 1 patch
DAILY HESHAM Administration
Protocol
Loratadine 10 mg 10/04/23 08:00 10/05/23 08:50
Loratadine 10 Mg Tablet PO 11/01/23 07:59 10 mg
DAILY HESHAM Administration
Pantoprazole Sodium 40 mg 10/04/23 12:00 10/05/23 08:49
Pantoprazole Sodium 40 Mg/10 Ml Vial IV 11/01/23 11:59 40 mg
DAILY HESHAM Administration
Sodium Chloride 0 flush 10/03/23 23:00
Sodium Chloride 0.9% (Flush) Syringe IV 10/31/23 22:59
PER PROTOCOL HESHAM
Sodium Chloride 10 ml 10/04/23 11:31 10/05/23 08:49
Sodium Chloride 0.9% (Preservative Free) 10 Ml Vial IV 11/01/23 11:30 10 ml
DAILY HESHAM Administration
Sotalol HCl 80 mg 10/04/23 08:00 10/05/23 08:50
Sotalol 80 Mg Tablet PO 11/01/23 07:59 80 mg
BID HESHAM Administration
Warfarin Sodium 2.5 mg 10/04/23 18:00 10/05/23 17:11
Warfarin 2.5 Mg Tablet PO 10/09/23 17:59 2.5 mg
QPM HESHAM Administration
Home Medications
�Medication �Instructions �Recorded
acetaminophen 325 mg tablet 650 mg PO Q6H PRN pain 10/03/23
carvedilol 6.25 mg tablet 6.25 mg PO BID Blood Pressure 10/03/23
enalapril maleate 20 mg tablet 20 mg PO BID Blood Pressure 10/03/23
escitalopram oxalate 10 mg tablet 10 mg PO DAILY Mental 10/03/23
(Lexapro) Health/Anxiety
hydralazine 50 mg tablet 50 mg PO TID Blood Pressure 10/03/23
latanoprost 0.005 % eye drops 1 drp ophthalmic (eye) QPM Eye 10/03/23
Condition
loratadine 10 mg tablet 10 mg PO DAILY Allergies 10/03/23
meclizine 25 mg tablet 25 mg PO TID dizzy 10/03/23
multivitamin 1 tab PO DAILY Supplement 10/03/23
simvastatin 20 mg tablet 20 mg PO DAILY High Cholesterol 10/03/23
sotalol 80 mg tablet 80 mg PO BID Blood Pressure 10/03/23
warfarin 2.5 mg tablet 2.5 mg PO DAILY Blood Clot 10/03/23
Prevention/Tx
[2023-10-05] MEDS: TYLENOL 650 MG PO (20:15)
[2023-10-05] MEDS: APRESOLINE PO (22:50)
[2023-10-05] MEDS: COREG PO (23:50)
[2023-10-05] MEDS: VASOTEC PO (23:50)
[2023-10-06] VITALS (9 sets, daily range): BP systolic 89–163; BP diastolic 53–81; PULSE 50–93; O2SAT 98; BMI 23.2
[2023-10-06 05:35] LABS: INR 2.25; PT 24.8 Sec (11.4-14.6)
[2023-10-06 05:52] LABS: Blood Urea Nitrogen 16 mg/dl (7-17); Calcium 9.2 mg/dl (8.4-10.2); Carbon Dioxide 29 mmol/L (22-30); Chloride 95 mmol/L (98-107); Estimated Creatinine Clearance 39 ml/min; Glucose 98 mg/dl (70-99); Magnesium 1.9 mg/dl (1.6-2.3); Potassium 4.1 mmol/L (3.5-5.1); Sodium 129 mmol/L (135-145); eGFR > 60.00
--- NOTE | 2023-10-06 05:59 | PTCARENOTE ---
Pt aaox3 able to make her needs known, pleasant & cooperative. FUEL CELL BINDER warehouse person made aware of pt BP range & standing orthos were 79/51, pt states she does feel symptomatic at times, sitting BP-124/74.APPLICATIONS ANALYST ok to hold meds as needed with parameters. Plan of
care continued.
--- NOTE | 2023-10-06 06:49 | PTCARENOTE ---
Addendum entered by Reagan Pack RN 10/06/23 06:49:
Pt site was continued to assess pt sacrum looks less red & is blanchable.No other complaints noted. Plan of care continued.
Original Note:
Pt noted with redness on sacrum & lower back during nursing assessmentat at change of shift,site is blanchable & intact, no blisters or open wound.Pt states she thinks its from the heat application.RN checked site with one more RN,applied barrier
cream,encouraged [id number],pillow in place.Pt able to move around in bed.SIGNAL SUPERVISOR transition mgr was called to assess pt & seen pt at bedside. No further orders.Plan of care continued on pt.
--- NOTE | 2023-10-06 07:47 | W.PN.NEURO.1 ---
Today's Communication / Plan
-
-Follow sodium
-Goal normotension
-Start vitamin B12 PO daily
-MRI C spine reviewed no intervenable abnormalities
-Lidocaine patch for symptomatic relief
-Can consider low dose Gabapentin 100-300 mg qhs if pain is not tolerable, she is okay with out it for now, educated and wrote down medication for son and patient for the future
-Minimize sedating medications otherwise
-Told them to watch out for rash on the symptomatic areas or any hand or arm weakness
No barriers to DC from my POV
Neuro Assessment/Plan
Assessment
87 year old woman presenting with band like discomfort in lower chest on and off for about 1 month
Uncontrolled hypertension as well but this is asymptomatic
DDx: Neuropathic pain from Vitamin B12 deficiency seems fair likelihood, other peripheral neuropathy doubtful, doubtful cervical myelopathy or radiculopathy. Zoster without rash is unlikely (bilateral also unlikely) but possible
Subjective/Objective
Subjective Data
Date of Service: October 06, 2023
Objective Data
Vital Signs
Temp Pulse Resp BP Pulse Ox
97.9 F 60 16 140/66 97
10/06/23 03:35 10/06/23 03:35 10/06/23 03:35 10/06/23 03:35 10/06/23 03:35
Lab Results
10/04/23 06:44
10/06/23 04:53
PT 24.8 Sec (11.4-14.6) H 10/06/23 04:53
INR 2.25 10/06/23 04:53
APTT 32.8 Sec (23.4-35.0) 10/03/23 16:16
Sodium 129 mmol/L (135-145) L 10/06/23 04:53
Potassium 4.1 mmol/L (3.5-5.1) D 10/06/23 04:53
BUN 16 mg/dl (7-17) 10/06/23 04:53
Glucose 98 mg/dl (70-99) 10/06/23 04:53
Calcium 9.2 mg/dl (8.4-10.2) 10/06/23 04:53
Vitamin B12 271 pg/ml (410-651) 10/04/23 06:44
Patient Allergies
No Known Allergies Allergy (Unverified 10/03/23 15:59)
[2023-10-06] MEDS: BETAPACE 80 MG PO (09:06)
[2023-10-06] MEDS: LIDOCAINE 4% PATCH 1 PATCH TOPICAL (09:07)
[2023-10-06] MEDS: APRESOLINE 50 MG PO ×3 (09:07→23:41)
[2023-10-06] MEDS: CLARITIN 10 MG PO (09:07)
[2023-10-06] MEDS: COREG 12.5 MG PO (09:07)
[2023-10-06] MEDS: LIPITOR 10 MG PO (09:07)
[2023-10-06] MEDS: VITAMIN B-12 1000 MCG PO (09:07)
[2023-10-06] MEDS: VASOTEC 20 MG PO (09:07)
[2023-10-06] MEDS: PROTONIX IV 40 MG IV (09:08)
[2023-10-06] MEDS: NSS (PRESERVATIVE FREE) 10 ML IV (09:08)
--- NOTE | 2023-10-06 12:05 | CM ---
Addendum entered by Sandi Dsouza 10/06/23 16:11:
CM met with Robyn's son to discuss discharge plans. [facility] is close to home and the preferred location for discharge. Bed will be available for transfer tomorrow. Pt will be transported via w/c van.
CM will follow up in AM for [facility] SNF authorization.
Accepting physician
[facility]
Report: [phone]
1st floor
[phone] 2nd floor
Original Note:
CM contacted by Ashley ([phone]) at [facility] who is able to accept Robyn for SNF admission when medically cleared and authorization obtained from [place] [id number]. Discharge anticipated 24-48 hours.
CM to follow to obtain SNF authorization from [place] [id number] and coordinate transfer to SNF when medically cleared.
Plan: Transfer to [facility] pending SNF authorization and medical clearance.
--- NOTE | 2023-10-06 12:40 | W.PN.HOSP.TC ---
Today's Communication/Plan
-
gabapentin
ECHO
BP improved
start dispo
Assessment / Plan
Assessment / Plan
HPI: 87 yo F with PMH significant for hypertension, Nubia who presented to ED complaining of burning chest discomfort and elevated blood pressure. Patient states that she has been having burning discomfort in a band-like fashion around the
lower chest / upper abdomen. This has been off-and-on for about one month. No associated palpitations, dyspnea, nausea, etc. Patient has been monitoring her BP and notes that it has been increasingly elevated at home - at times as high as 250
systolic. She has had several recent medication changes including: switch from metoprolol to carvedilol and increase in hydralazine from 25mg to 50mg TID.
On DOA, she had worsening burning sensation around her middle and her BP was markedly elevated at home - prompting her to present to the ED for further evaluation.
A/P:
# Hyponatremia, impossible to determine if acute or symptomatic (no prior labs for comparison)
Urine studies reviewed.
sodium level improved from 123 on admission to 129
DC further Lasix
Follow for improvement in Na levels.
TSH 3.44, am cortisol acceptable at 18.5
# Uncontrolled Hypertension
Cont SOFTWARE PROJECT LEAD lisinopril, hydralazine with holding parameter
Cont SOFTWARE PROJECT LEAD Coreg, increased from 6.25 to 12.5 BID
Check Echo to evaluate for cardiomyopathy, etc
BP improved
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
# Bilateral upper extremity radiculopathy cervical
Normal EKG / troponin neg x3
Pt declined ASA at this time given she's on Coumadin, OK to hold further ASA with unrevealing cardiac work up
Neuro consulted
MR Cervical spine -no evidence of spinal cord compression and central canal stenosis. At C4-C5 moderate left lateral recess stenosis. Moderate to severe left foraminal narrowing. C5-C6 moderate left foraminal narrowing with mild right foraminal
narrowing.
Can follow-up outpatient with neurosurgery or spine orthopedic however recommended physical and Occupational Therapy
Started on gabapentin can continue and can uptitrate as outpatient
Started on B12 supplementation-levels were low
# Paroxysmal Atrial Fibrillation
Currently in NSR.
Patient reports single episode of A-Fib in the remote past and none since that she is aware of.
Continue sotalol and Coumadin for now.
Follow INR daily. INR therapeutic at 2.25
Monitor on telemetry.
# Anxiety / Depression
Hold off on restarting SSRIs until sodium stabilizes.
# Hypokalemia
replete K
DVT Prophylaxis: On Coumadin
Code Status: Full
Dispo: PT OT eval -SNF. CM aware.
Discussed with patient son at bedside in detail
Anticipated Discharge: Today
Subjective/Interval History
-
Date of Service: October 06, 2023
intermittent b/l pain in upper chest area. No focal weakness
no sob
tolerating diet
Denies left chest pain/substernal
Objective Data
-
Labs:
Laboratory Results
10/06/23
04:53
PT 24.8 H
INR 2.25
Sodium 129 L
Potassium 4.1 D
Chloride 95 L
Carbon Dioxide 29
BUN 16
Creatinine 0.9
Glucose 98
Calcium 9.2
Vital Signs:
Vital Signs
Temp Pulse Resp BP Pulse Ox
98.1 F 58 16 109/53 96
10/06/23 11:22 10/06/23 11:22 10/06/23 11:22 10/06/23 11:22 10/06/23 11:22
I&O
10/05/23 10/06/23 10/07/23
06:59 06:59 06:59
Intake Total 720 / 720 960 / 960
Output Total 200 / 200 1050 / 1050
Balance 520 / 520 -90 / -90
Physical Exam
-
General: Well Developed, Well Nourished, No Apparent Distress, Comfortable and Conversant; Negative Respiratory Distress
HEENT: Normocephalic, Atraumatic, Nose Appears Normal and Ears Appear Normal; Negative Oxygen
Respiratory: Clear to Auscultation and Non Labored Respirations; Negative Accessory Resp Muscle Use
Cardiac: Regular Rhythm and S1/S2
GI: Soft, Nontender, Nondistended and Normal Bowel Sounds
Skin: Warm and Dry
Neuro: Awake, Alert, Oriented and AO x 3
Psych: Calm and Intact Judgement/Insight
--- NOTE | 2023-10-06 13:43 | PN.CDI ---
CDI
- -
CDI:
Physician Documentation Request
Admit Date: 10/03/23 22:23
Dear Doctor Wilson,
Please review the following and provide your response in the progress notes.
Clinical Indicators:
- 10/02 ER Physician indicates elevated blood pressure despite outpatient medication changes
- 10/05 PN 'Uncontrolled Hypertension'
- IV Hydralazine given
- PO Coreg doubled
Selected Entries
10/03/23
15:57 10/03/23
20:21 10/03/23
23:00
Blood pressure 203/91 191/81 189/89
Clarify which, if any of the following, is a more accurate diagnosis reflecting the type and acuity of the documented hypertension:
Essential primary hypertension
Hypertensive Urgency - B/P is severely elevated (systolic > or = to 180 or diastolic > or = to 110) but there is no associated organ damage. Symptoms may include: headache, shortness of breath, nosebleeds, severe anxiety. Treatment usually consists
of addition to or adjusting of oral medications and does not generally necessitate hospitalization.
Hypertensive Emergency - B/P is severely elevated (systolic > or = to 180 or diastolic > or = to 110) but can occur at lower levels especially in patients who did not previously have high B/P. There is usually associated organ damage. Symptoms may
include: memory loss, LOC, CVA, CA, angina, renal failure, pulmonary edema. Generally requires more aggressive treatment and a hospitalization.
Hypertensive Crisis - an acute elevation in B/P that can lead to organ damage. Broad term that is further differentiated to include urgency or emergency based on presence of organ damage.
Other (please specify)
Use of terms such as suspected, likely, concern for, or probable (associated with a specific diagnosis that is being evaluated, monitored, or treated as if it exists) are acceptable and can be coded in the inpatient setting, when documented at the
time of discharge.
Thank you,
Gato Sheth RN
CDI Specialist
Please use your independent medical judgment in providing your response.
[2023-10-06] MEDS: XALATAN OPHTHALMIC SOLUTION 1 DROP BOTH EYES (18:28)
[2023-10-06] MEDS: COUMADIN 2.5 MG PO (18:28)
[2023-10-06] MEDS: BETAPACE PO (21:18)
[2023-10-06] MEDS: VASOTEC PO (21:19)
[2023-10-06] MEDS: COREG PO (21:19)
[2023-10-06] MEDS: TYLENOL 650 MG PO (21:21)
[2023-10-07 03:27] VITALS: BP 124/56
[2023-10-07 05:23] LABS: INR 2.13; PT 23.7 Sec (11.4-14.6)
[2023-10-07 07:20] VITALS: BP 153/74
--- NOTE | 2023-10-07 08:23 | W.PN.HOSP.TC ---
Addendum entered and electronically signed by Jhony Rachel MD 10/07/23 13:37:
Patient feeling better. No lightheaded and dizziness. Status post IV fluid bolus. Decrease carvedilol. DC to SNF.
More than 30 minutes spent in discharge including
Final examination of the patient
Summarizing hospital stay
Instructions for continuing care to all relevant caregivers
Preparation of discharge records, prescriptions, and referral forms
Total time spent (in minutes): 45
Original Note:
Today's Communication/Plan
-
Dec coreg
start gabapentin
gentle IVF
Await dispo
Assessment / Plan
Assessment / Plan
HPI: 87 yo F with PMH significant for hypertension, PA-Fib who presented to ED complaining of burning chest discomfort and elevated blood pressure. Patient states that she has been having burning discomfort in a band-like fashion around the
lower chest / upper abdomen. This has been off-and-on for about one month. No associated palpitations, dyspnea, nausea, etc. Patient has been monitoring her BP and notes that it has been increasingly elevated at home - at times as high as 250
systolic. She has had several recent medication changes including: switch from metoprolol to carvedilol and increase in hydralazine from 25mg to 50mg TID.
On DOA, she had worsening burning sensation around her middle and her BP was markedly elevated at home - prompting her to present to the ED for further evaluation.
A/P:
# Hyponatremia, impossible to determine if acute or symptomatic (no prior labs for comparison)
Urine studies reviewed.
sodium level improved from 123 on admission to 129
DC further Lasix
Follow for improvement in Na levels.
TSH 3.44, am cortisol acceptable at 18.5
# Hypertension Urgency
Cont FIELD ENGINEER lisinopril, hydralazine with holding parameter
Cont FIELD ENGINEER Coreg, increased
ECHO noted.
Patient orthostatic positive this morning. Decrease Coreg back to home dosing. Mild IVF bolus.
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
# Bilateral upper extremity radiculopathy cervical
Normal EKG / troponin neg x3
Pt declined ASA at this time given she's on Coumadin, OK to hold further ASA with unrevealing cardiac work up
Neuro consulted
MR Cervical spine -no evidence of spinal cord compression and central canal stenosis. At C4-C5 moderate left lateral recess stenosis. Moderate to severe left foraminal narrowing. C5-C6 moderate left foraminal narrowing with mild right foraminal
narrowing.
Can follow-up outpatient with neurosurgery or spine orthopedic however recommended physical and Occupational Therapy
Started on gabapentin can continue and can uptitrate as outpatient-patient verbalized understanding and agreed to be started nightly.
Started on B12 supplementation-levels were low
# Paroxysmal Atrial Fibrillation
Currently in NSR.
Patient reports single episode of A-Fib in the remote past and none since that she is aware of.
Continue sotalol and Coumadin for now.
Follow INR daily. INR therapeutic at 2.13
Monitor on telemetry.
# Anxiety / Depression
Hold off on restarting SSRIs until sodium stabilizes.
# Hypokalemia
replete K
DVT Prophylaxis: On Coumadin
Code Status: Full
Dispo: PT OT eval -SNF. CM aware.
Discussed with patient son at bedside in detail on 10/05
Anticipated Discharge: Today
Subjective/Interval History
-
Date of Service: October 07, 2023
remains with intermittent burning sensation in RUE
no weakness
Objective Data
-
Labs:
Laboratory Results
10/07/23
04:42
PT 23.7 H
INR 2.13
Vital Signs:
Vital Signs
Temp Pulse Resp BP Pulse Ox
97.6 F 74 18 153/74 97
10/07/23 07:20 10/07/23 07:20 10/07/23 07:20 10/07/23 07:20 10/07/23 07:20
I&O
10/06/23 10/07/23 10/08/23
06:59 06:59 06:59
Intake Total 960 / 960 1020 / 1020
Output Total 1050 / 1050
Balance -90 / -90 1020 / 1020
Physical Exam
-
General: Well Developed, Well Nourished, No Apparent Distress, Comfortable and Conversant; Negative Respiratory Distress
HEENT: Normocephalic, Atraumatic, Nose Appears Normal and Ears Appear Normal; Negative Oxygen
Respiratory: Clear to Auscultation and Non Labored Respirations; Negative Accessory Resp Muscle Use
Cardiac: Regular Rhythm and S1/S2
GI: Soft, Nontender, Nondistended and Normal Bowel Sounds
Skin: Warm and Dry
Neuro: Awake, Alert, Oriented and AO x 3
Psych: Calm and Intact Judgement/Insight
[2023-10-07 09:15] VITALS: BP 103/65; BP 150/72; BP 153/74; PULSE 74; PULSE 95
[2023-10-07] MEDS: PROTONIX IV 40 MG IV (09:20)
[2023-10-07] MEDS: NSS (PRESERVATIVE FREE) 10 ML IV (09:20)
[2023-10-07] MEDS: LIDOCAINE 4% PATCH 1 PATCH TOPICAL (09:21)
[2023-10-07] MEDS: BETAPACE 80 MG PO (09:22)
[2023-10-07] MEDS: CLARITIN 10 MG PO (09:22)
[2023-10-07] MEDS: LIPITOR 10 MG PO (09:22)
[2023-10-07] MEDS: VITAMIN B-12 1000 MCG PO (09:22)
[2023-10-07] MEDS: VASOTEC PO (09:44)
[2023-10-07] MEDS: APRESOLINE PO (09:44)
--- NOTE | 2023-10-07 10:55 | PN.CDI ---
CDI
- -
CDI:
Physician Documentation Request
Admit Date: 10/03/23 22:23
Dear Doctor Wilson,
Please review the following and provide your response in the progress notes.
Clinical Indicators:
- Patient admit for hyponatremia
- 10/05 PN 'Uncontrolled Hypertension'
- 10/02 IV Hydralazine
- Admission BP as follows:
Selected Entries
10/03/23
15:57 10/03/23
20:21 10/03/23
21:22
Blood pressure 203/91 191/81 169/83
10/03/23
23:00 10/04/23
03:39 10/04/23
06:54
Blood pressure 189/89 127/73 164/77
Please further clarify which, if any of the following, is a more accurate diagnosis reflecting the uncontrolled hypertension:
Essential primary hypertension
Hypertensive Urgency - B/P is severely elevated (systolic > or = to 180 or diastolic > or = to 110) but there is no associated organ damage. Symptoms may include: headache, shortness of breath, nosebleeds, severe anxiety. Treatment usually consists
of addition to or adjusting of oral medications and does not generally necessitate hospitalization.
Hypertensive Emergency - B/P is severely elevated (systolic > or = to 180 or diastolic > or = to 110) but can occur at lower levels especially in patients who did not previously have high B/P. There is usually associated organ damage. Symptoms may
include: memory loss, LOC, CVA, [place], angina, renal failure, pulmonary edema. Generally requires more aggressive treatment and a hospitalization.
Hypertensive Crisis - an acute elevation in B/P that can lead to organ damage. Broad term that is further differentiated to include urgency or emergency based on presence of organ damage.
Other (please specify)
Use of terms such as suspected, likely, concern for, or probable (associated with a specific diagnosis that is being evaluated, monitored, or treated as if it exists) are acceptable and can be coded in the inpatient setting, when documented at the
time of discharge.
Thank you,
Gato Sheth RN
CDI Specialist
Please use your independent medical judgment in providing your response.
--- NOTE | 2023-10-07 11:12 | CM ---
Addendum entered by Sandi Dsouza 10/07/23 13:20:
CM contacted Ashley again and left a voicemail requesting return call to coordinate discharge timing. Await return call. Family awaiting discharge.
Addendum entered by Sandi Dsouza 10/07/23 12:48:
HARVINDER met with Robyn and her daughter at bedside to make them aware of authorization for transfer to SNF. We discussed transport to the facility and determined w/c van would be best option. Daughter aware that w/c van will be private pay; Robyn does
not qualify or need ambulance transport.
SNF authorization for [facility] received: 7 days, 10/06-10/13/2023 with next review date 10/13/2023 to [phone]. Ashley Ortiz notified via voicemail of authorization. Await return call to arrange transport time.
TT to Dr. Rachel who advised that Robyn would be discharged today.
Report: [phone]

Original Note:
HARVINDER called [facility] for SNF authorization. Case reviewed with Lesley who will call back shortly with the SNF authorization.
CM to contact family regarding transfer via w/c van.
[facility] has accepted for admission pending [facility] SN[facility] authorization.
CM to follow to coordinate discharge plans.
--- NOTE | 2023-10-07 11:27 | PTCARENOTE ---
Patient orthostatic this am, Dr. Rachel made aware. Hydralizine and Enalapril ordered to be held. Betapace given. Patient reports 'weakness' when standing. Plan of care ongoing.
[2023-10-07 11:37] VITALS: BP 161/67
[2023-10-07] MEDS: NSS 500 IV (12:51)
== END 2023-10-07 14:32 | DRG 74 ==
LOC: 4 EAST ACU 22:23
PROVIDERS: Internal Medicine; ADMITTING PHYSICIAN Hospitalist; ATTENDING PHYSICIAN Hospitalist; CONSULT PHYSICIAN Psychiatry & Neurology Neurology; EMERGENCY PHYSICIAN Emergency Medicine
DX: M54.12 Radiculopathy, cervical region (principal); E87.1 Hypo-osmolality and hyponatremia; I16.0 Hypertensive urgency; I10 Essential (primary) hypertension; F32.A Depression, unspecified; M48.02 Spinal stenosis, cervical region; F41.9 Anxiety disorder, unspecified; I48.0 Paroxysmal atrial fibrillation; H35.30 Unspecified macular degeneration; E87.6 Hypokalemia; Z96.641 Presence of right artificial hip joint; Z79.01 Long term (current) use of anticoagulants; Z79.899 Other long term (current) drug therapy
CPT/HCPCS: 71046; 72141; 80048; 80053; 81003; 81015; 82533; 82607; 83735; 83930; 83935; 84300; 84443; 84484; 85025; 85027; 85610; 85730; 93005; 93306; 96361; 96374; 97162; 97166; 97530; 97535; 99285